=== PATIENT | male | born 1985 | race Caucasian/White ===

== ENCOUNTER 2019-08-16 12:30 | Emergency (ER) | payer MEDICAID ==
[~2019-08-16] VITALS: Ht 177.8 cm; Wt 86.0 kg
[2019-08-16 12:31] VITALS: BP 108/86
== END 2019-08-16 13:15 | disposition left against medical advice (07) ==
LOC: ER 12:30
DX: F98.9 Unspecified behavioral and emotional disorders with onset usually occurring in childhood and adolescence (principal); Z53.21 Procedure and treatment not carried out due to patient leaving prior to being seen by health care provider

== ENCOUNTER 2019-08-30 22:40 | Emergency (ER) | payer MEDICAID ==
[~2019-08-30] VITALS: Ht 180.3 cm; Wt 88.0 kg
[2019-08-30] MEDS ORDERED: SODIUM CHLORIDE 0.9% 1,000 ML IV ONE (23:40)
[2019-08-31 00:20] LABS: HEMATOCRIT. 44.2 % (42.0-52.0); HEMOGLOBIN. 14.9 g/dL (14.0-18.0); MEAN CORPUSCULAR VOLUME 98.2 fL (80.0-94.0); MEAN PLATELET VOLUME 9.8 fl (7.4-10.4); PLATELET 179 x1000/uL (130-400)
[2019-08-31 00:22] LABS: CHLORIDE 109 mEq/L (98-107)
[2019-08-31] MEDS ORDERED: LIDOCAINE HCL 1% 20ML VIAL (Pyxis) INJ INFIL ONE (00:30)
[2019-08-31 01:23] LABS: ATYPICAL LYMPHOCYTES 3; PLATELET ESTIMATE NORMAL
[2019-08-31] MEDS ORDERED: IOHEXOL-300 100 ML BOTTLE ONE (02:39)
[2019-08-31] MEDS ORDERED: CEFTRIAXONE 1 G PREMIX 50 ML IV ONE (05:15)
[2019-08-31] MEDS ORDERED: METRONIDAZOLE 500 MG PREMIX 100 ML IV ONE (05:15)
[2019-08-31 06:54] VITALS: BP 133/88
== END 2019-08-31 07:39 | disposition left against medical advice (07) ==
LOC: ER 22:40 → CANBEDREQ 08-31 16:41
DX: K52.9 Noninfective gastroenteritis and colitis, unspecified (principal); F12.10 Cannabis abuse, uncomplicated; F15.10 Other stimulant abuse, uncomplicated; F17.210 Nicotine dependence, cigarettes, uncomplicated
CPT/HCPCS: 36415; 74177; 80053; 83690; 85025; 87040; 96361; 96365; 96368; 99284; 99406; J0696; J3490; J7030; Q9967; Z7610

== ENCOUNTER 2019-09-02 00:31 | Emergency (ER) | payer MEDICAID ==
[~2019-09-02] VITALS: Ht 177.8 cm; Wt 73.0 kg
[2019-09-02 01:30] VITALS: BP 145/89
== END 2019-09-02 02:21 | disposition home or self-care (01) ==
LOC: ER 00:31
DX: Z04.89 Encounter for examination and observation for other specified reasons (principal); F15.10 Other stimulant abuse, uncomplicated; F12.10 Cannabis abuse, uncomplicated
CPT/HCPCS: 99283

== ENCOUNTER 2019-09-03 23:07 | Emergency (ER) | payer MEDICAID ==
[~2019-09-03] VITALS: Ht 172.7 cm; Wt 73.0 kg
[2019-09-03] MEDS ORDERED: IBUPROFEN 800MG TABLET PO ONE (23:45)
[2019-09-04 00:16] VITALS: BP 121/67
== END 2019-09-04 00:17 | disposition home or self-care (01) ==
LOC: ER 23:26
DX: M79.10 Myalgia, unspecified site (principal); Y08.89XA Assault by other specified means, initial encounter; Y93.89 Activity, other specified; Y92.89 Other specified places as the place of occurrence of the external cause; Y99.8 Other external cause status
CPT/HCPCS: 99283

== ENCOUNTER 2019-09-07 13:18 | Emergency (ER) | payer MEDICAID ==
[~2019-09-07] VITALS: Ht 175.3 cm; Wt 89.0 kg
[2019-09-07 15:52] VITALS: BP 117/85
== END 2019-09-07 15:53 | disposition home or self-care (01) ==
LOC: ER 13:18
DX: A63.0 Anogenital (venereal) warts (principal)
CPT/HCPCS: 99283

== ENCOUNTER 2019-12-19 02:38 | Emergency (ER) | payer MEDICAID ==
[~2019-12-19] VITALS: Ht 172.7 cm; Wt 65.0 kg
[2019-12-19] MEDS ORDERED: LORAZEPAM 1MG TABLET PO ONE (03:30)
[2019-12-19 04:34] VITALS: BP 138/89
== END 2019-12-19 04:34 | disposition home or self-care (01) ==
LOC: ER 02:55
DX: R51 Headache (principal); F15.10 Other stimulant abuse, uncomplicated
CPT/HCPCS: 99283

== ENCOUNTER 2020-01-19 01:55 | Emergency (ER) | payer MEDICAID ==
[~2020-01-19] VITALS: Ht 175.3 cm; Wt 91.0 kg
[2020-01-19 01:58] VITALS: BP 18/99
== END 2020-01-19 02:30 | disposition left against medical advice (07) ==
LOC: ER 01:55
DX: H53.8 Other visual disturbances (principal); Z53.21 Procedure and treatment not carried out due to patient leaving prior to being seen by health care provider

== ENCOUNTER 2020-05-12 15:47 | Inpatient (IN) | payer MEDICAID ==
[~2020-05-12] VITALS: Ht 167.6 cm; Wt 63.5 kg
[2020-05-12 16:59] LABS: BASOPHILS % 0.1 % (0.0-2.0); EOSINOPHILS % 0.2 % (0.0-5.0); HEMATOCRIT. 40.9 % (42.0-52.0); HEMOGLOBIN. 14.2 g/dL (14.0-18.0); LYMPHOCYTES % 13.4 % (20.0-50.0); MEAN CORPUSCULAR HEMOGLOBIN 30.2 pg (28.0-32.0); MEAN CORPUSCULAR VOLUME 86.9 fL (80.0-94.0); MEAN PLATELET VOLUME 12.8 fl (7.4-10.4); NEUTROPHILS % 81.3 % (40.0-76.0); PLATELET 127 x1000/uL (130-400); RED CELL DISTRIBUTION WIDTH 15.1 % (11.6-14.6)
[2020-05-12 17:00] LABS: CHLORIDE 118 mEq/L (98-107)
[2020-05-12 17:04] LABS: ETHANOL BLOOD 62 mg/dL
[2020-05-12 17:51] LABS: CLARITY URINE CLEAR (CLEAR); COLOR URINE YELLOW (YELLOW); KETONES URINE NEGATIVE (NEGATIVE); LEUKOCYTE ESTERASE URINE NEGATIVE (NEGATIVE); NITRITE URINE NEGATIVE (NEGATIVE); OCCULT BLOOD URINE NEGATIVE (NEGATIVE); PH URINE 6.5 (4.5-8.0); PROTEIN URINE 1+ (NEGATIVE); SPECIFIC GRAVITY URINE 1.011 (1.005-1.030); UROBILINOGEN URINE 0.2 E.U./dL (0.2-1.0)
[2020-05-12 18:02] LABS: *AMPHETAMINES SCREEN URINE PRESUMTIVE POSITIVE (NEGATIVE); *BARBITURATES SCREEN URINE NEGATIVE (NEGATIVE); *BENZODIAZEPINES SCREEN URINE NEGATIVE (NEGATIVE); *COCAINE SCREEN URINE NEGATIVE (NEGATIVE); METHADONE URINE SCREEN NEGATIVE (NEGATIVE); OPIATES URINE SCREEN NEGATIVE (NEGATIVE)
[2020-05-12 18:03] LABS: CANNABINOID URINE SCREEN NEGATIVE (NEGATIVE); PHENCYCLIDINE URINE SCREEN NEGATIVE (NEGATIVE)
[2020-05-12] MEDS ORDERED: DEXT 5%/0.45% NACL KCL 40MEQ/L 1,000 ML IV ONE (19:00)
[2020-05-13] VITALS (7 sets, daily range): BP systolic 90–104; BP diastolic 51–69
[2020-05-13] MEDS ORDERED: ONDANSETRON HCL 4MG/2ML INJ IV PRN (00:15)
[2020-05-13] MEDS: OMEPRAZOLE 20MG CAPSULE EXTENDED RELEASE PO SCH (07:20)
[2020-05-13 12:46] LABS: BASOPHILS % 0.2 % (0.0-2.0); EOSINOPHILS % 0.2 % (0.0-5.0); HEMOGLOBIN. 14.3 g/dL (14.0-18.0); LYMPHOCYTES % 16.6 % (20.0-50.0); MEAN PLATELET VOLUME 12.8 fl (7.4-10.4); MONOCYTES % 6.3 % (2.0-8.0); NEUTROPHILS % 76.7 % (40.0-76.0); PLATELET 123 x1000/uL (130-400); RED BLOOD CELL COUNT 4.78 mill/uL (4.7-6.1); RED CELL DISTRIBUTION WIDTH 15.1 % (11.6-14.6)
[2020-05-13 13:17] LABS: CHLORIDE 121 mEq/L (98-107)
[2020-05-13] MEDS ORDERED: SODIUM BICARBONATE 8.4% 1 MEQ/ML 50ML SYR IV NR (14:45)
[2020-05-13] MEDS ORDERED: POTASSIUM CHLORIDE 20MEQ TABLET SR PO NR (14:45)
[2020-05-13] MEDS: THIAMINE HCL 100MG TABLET PO SCH (14:48)
[2020-05-13] MEDS: MULTIVITAMINS,THER W-MINERALS TABLET PO SCH (14:48)
[2020-05-13] MEDS: FOLIC ACID 1MG TABLET PO SCH (14:48)
[2020-05-13] MEDS: SODIUM CHL 0.9% + KCL 20MEQ/L 1,000 ML IV SCH ×3 (16:30→16:59)
[2020-05-14] VITALS: BP 107/65
[2020-05-14] MEDS: SODIUM CHL 0.9% + KCL 20MEQ/L 1,000 ML IV SCH ×2 (01:05→06:40)
[2020-05-14 04:00] VITALS: BP 113/59
[2020-05-14] MEDS: OMEPRAZOLE 20MG CAPSULE EXTENDED RELEASE PO SCH (06:55)
[2020-05-14 07:18] LABS: CHLORIDE 122 mEq/L (98-107)
[2020-05-14 07:42] LABS: BASOPHILS % 0.3 % (0.0-2.0); EOSINOPHILS % 0.5 % (0.0-5.0); HEMATOCRIT. 40.3 % (42.0-52.0); HEMOGLOBIN. 13.9 g/dL (14.0-18.0); LYMPHOCYTES % 14.8 % (20.0-50.0); MEAN CORPUSCULAR HEMOGLOBIN 30.1 pg (28.0-32.0); MEAN PLATELET VOLUME 13.9 fl (7.4-10.4); MONOCYTES % 6.7 % (2.0-8.0); NEUTROPHILS % 77.7 % (40.0-76.0); PLATELET 121 x1000/uL (130-400); RED BLOOD CELL COUNT 4.64 mill/uL (4.7-6.1); RED CELL DISTRIBUTION WIDTH 15.5 % (11.6-14.6)
[2020-05-14] MEDS: MULTIVITAMINS,THER W-MINERALS TABLET PO SCH (08:52)
[2020-05-14] MEDS: FOLIC ACID 1MG TABLET PO SCH (08:52)
[2020-05-14] MEDS: THIAMINE HCL 100MG TABLET PO SCH (08:52)
[2020-05-14 09:06] LABS: ABSOLUTE LYMPHOCYTES 1.6 x10E3/uL (0.7-3.1); ABSOLUTE MONOCYTES 0.6 x10E3/uL (0.1-0.9); ABSOLUTE NEUTROPHILS 7.2 x10E3/uL (1.4-7.0); BASOPHILS 0 % (Not Estab.); HEMATOCRIT 43.1 % (37.5-51.0); IMMATURE GRANULOCYTES 0 % (Not Estab.); LYMPHOCYTES 17 % (Not Estab.); MEAN CORPUSCULAR HEMOGLOBIN 28.6 pg (26.6-33.0); MEAN CORPUSCULAR HGB CONC. 32.5 g/dL (31.5-35.7); MEAN CORPUSCULAR VOLUME 88 fL (79-97); MONOCYTES 6 % (Not Estab.); NEUTROPHILS 77 % (Not Estab.); PLATELETS 149 x10E3/uL (150-450); RBC 4.89 x10E6/uL (4.14-5.80); WBC 9.5 x10E3/uL (3.4-10.8)
[2020-05-14 10:07] LABS: % CD 3 POS. LYMPHOCYTES 90.8 % (57.5-86.2); % CD 4 POS. LYMPHOCYTES 1.8 % (30.8-58.5); % CD 8 POS. LYMPH 82.3 % (12.0-35.5); ABSOLUTE CD 3 1453 /uL (622-2402); ABSOLUTE CD 4 HELPER 29 /uL (359-1519); ABSOLUTE CD 8 SUPPRESSOR 1317 /uL (109-897); CD4/CD8 RATIO 0.02 (0.92-3.72)
[2020-05-14] MEDS ORDERED: AZITHROMYCIN 500 MG TABLET PO SCH (10:15)
[2020-05-14] MEDS ORDERED: DEXTROSE 5% WATER 1,000 ML IV SCH (10:15)
[2020-05-14] MEDS ORDERED: POTASSIUM CHLORIDE 20MEQ TABLET SR PO ONE (10:15)
[2020-05-14] MEDS ORDERED: SODIUM BICARBONATE 8.4% 1 MEQ/ML 50ML SYR IV ONE (10:15)
[2020-05-14 10:41] LABS: CREATINE KINASE 72 IU/L (39-308)
[2020-05-15] MEDS ORDERED: SULFAMETHOXAZOLE/TRIMETHOPRIM 800/160MG TABLET PO SCH (09:00)
== END 2020-05-14 09:45 | disposition left against medical advice (07) | DRG 770 ==
LOC: ER 15:47 → 6WST 19:02 → ENRESERV 22:16
PROVIDERS: ADMIT Internal Medicine; ATTEND Internal Medicine
DX: F10.129 Alcohol abuse with intoxication, unspecified (principal); G92 Toxic encephalopathy; N17.0 Acute kidney failure with tubular necrosis; E87.6 Hypokalemia; Z53.29 Procedure and treatment not carried out because of patient's decision for other reasons; E44.0 Moderate protein-calorie malnutrition; F15.90 Other stimulant use, unspecified, uncomplicated; E87.8 Other disorders of electrolyte and fluid balance, not elsewhere classified; Z71.51 Drug abuse counseling and surveillance of drug abuser; Z68.22 Body mass index [BMI] 22.0-22.9, adult; Y90.3 Blood alcohol level of 60-79 mg/100 ml
CPT/HCPCS: 36415; 71045; 80048; 80053; 80305; 80320; 81003; 82550; 83605; 83735; 84145; 84443; 85025; 86359; 86360; 87015; 87045; 87427; 87449; 87493; 99285; J3480; J3490; G0480

== ENCOUNTER 2023-06-09 04:41 | Emergency (ER) | payer MEDICAID ==
[~2023-06-09] VITALS: Ht 175.3 cm; Wt 90.0 kg
[2023-06-09 04:47] VITALS: BP 138/72; PULSE 80; RESP 18; TEMP 97.8; O2SAT 98
== END 2023-06-09 11:46 | disposition left against medical advice (07) ==
LOC: ER 04:41
DX: Z53.21 Procedure and treatment not carried out due to patient leaving prior to being seen by health care provider (principal)
CPT/HCPCS: 93005; 99281

== ENCOUNTER 2023-06-15 03:14 | Emergency (ER) | payer MEDICAID ==
[~2023-06-15] VITALS: Ht 165.1 cm; Wt 74.0 kg
[2023-06-15 03:23] VITALS: BP 144/83; PULSE 86; RESP 20; TEMP 98.4; O2SAT 99
[2023-06-15 04:19] LABS: BASOPHILS % 0.8 % (0.0-2.0); EOSINOPHILS % 1.2 % (0.0-5.0); HEMATOCRIT. 46.5 % (42.0-52.0); HEMOGLOBIN. 15.2 g/dL (14.0-18.0); LYMPHOCYTES % 24.4 % (20.0-50.0); MEAN CORPUSCULAR HEMOGLOBIN 31.1 pg (28.0-32.0); MEAN CORPUSCULAR HGB CONC 32.6 g/dL (31.0-37.0); MEAN CORPUSCULAR VOLUME 95.4 fL (80.0-94.0); MEAN PLATELET VOLUME 9.8 fl (7.4-10.4); MONOCYTES % 8.3 % (2.0-8.0); NEUTROPHILS % 65.3 % (40.0-76.0); PLATELET 238 x1000/uL (130-400); RED BLOOD CELL COUNT 4.88 mill/uL (4.7-6.1); RED CELL DISTRIBUTION WIDTH 13.3 % (11.6-14.6); WHITE BLOOD COUNT 10.5 x1000/uL (4.5-11.0)
[2023-06-15 04:28] LABS: CHLORIDE 106 mEq/L (98-107); INDEX HEMOLYSI 1 (1-3); INDEX ICTERIC 1 (1-4); INDEX LIPEMIC 1 (1-3); SODIUM 139 mEq/L (136-145)
[2023-06-15 04:36] LABS: ALANINE AMINOTRANSFERASE 41 IU/L (13-61); ALBUMIN 3.9 g/dL (3.4-5.0); ASPARTATE AMINOTRANSFERASE 36 IU/L (15-37); CALCIUM 8.7 mg/dL (8.5-10.1); CARBON DIOXIDE 25 mEq/L (21-32); CREATININE 1.1 mg/dL (0.6-1.3); GLUCOSE 101 mg/dL (70-105); PROTEIN TOTAL 7.8 g/dL (6.0-8.3); UREA NITROGEN BLOOD 9 mg/dL (7-21)
[2023-06-15 04:40] LABS: POTASSIUM 2.8 mEq/L (3.5-5.1)
== END 2023-06-15 08:42 | disposition left against medical advice (07) ==
LOC: ER 03:14
DX: Z53.21 Procedure and treatment not carried out due to patient leaving prior to being seen by health care provider (principal)
CPT/HCPCS: 36415; 80053; 85025; 99281

== ENCOUNTER 2023-07-14 04:02 | Emergency (ER) | payer MEDICAID ==
[~2023-07-14] VITALS: Ht 167.6 cm; Wt 68.0 kg
[2023-07-14 04:05] VITALS: BP 146/95; PULSE 104; RESP 18; TEMP 98.8; O2SAT 98
[2023-07-14] MEDS ORDERED: MAGNESIUM/ALUMINUM HYDROXIDE/SIMETHICONE 30ML UDC PO STA (05:23)
[2023-07-14] MEDS ORDERED: ONDANSETRON 4MG ODT PO STA (05:23)
[2023-07-14] MEDS ORDERED: FAMOTIDINE 20MG TABLET PO ONE (05:30)
[2023-07-14] MEDS ORDERED: MAGNESIUM/ALUMINUM HYDROXIDE/SIMETHICONE 30ML UDC PO NR (07:45)
[2023-07-14] MEDS ORDERED: ONDANSETRON 4MG ODT PO NR (07:45)
[2023-07-14] MEDS ORDERED: FAMOTIDINE 20MG TABLET PO NR (07:45)
== END 2023-07-14 08:22 | disposition home or self-care (01) ==
LOC: ER 04:02
DX: A08.4 Viral intestinal infection, unspecified (principal); F17.200 Nicotine dependence, unspecified, uncomplicated; F15.90 Other stimulant use, unspecified, uncomplicated
CPT/HCPCS: 99283; Q0162

== ENCOUNTER 2025-09-12 23:49 | Emergency (ER) | payer MEDICAID ==
[~2025-09-12] VITALS: Ht 175.3 cm; Wt 88.0 kg
[2025-09-13 00:05] VITALS: BP 194/102; PULSE 74; RESP 18; TEMP 36.8; O2SAT 99
[2025-09-13] MEDS ORDERED: ONDANSETRON HCL 4MG/2ML INJ IV ONE (00:30)
[2025-09-13] MEDS ORDERED: NALOXONE HCL 0.4MG/ML 1ML VIAL IM ONE (00:30)
== END 2025-09-13 00:45 | disposition left against medical advice (07) ==
LOC: ER 23:49
DX: T43.651A Poisoning by methamphetamines accidental (unintentional), initial encounter (principal); T40.601A Poisoning by unspecified narcotics, accidental (unintentional), initial encounter; F11.90 Opioid use, unspecified, uncomplicated; R41.82 Altered mental status, unspecified; Y92.89 Other specified places as the place of occurrence of the external cause
CPT/HCPCS: 99283